=== PATIENT | male | born 1980 | race Caucasian/White ===

== ENCOUNTER → 2019-03-31 | Outpatient (CLI) | payer OTHER ==
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
== END ==
LOC: MRI 14:14
PROVIDERS: ATTEND Physician Assistant
DX: M23.91 Unspecified internal derangement of right knee (principal)

== ENCOUNTER → 2019-05-01 | Day surgery (SDC) | payer OTHER ==
[~2019-05-01] MED LIST: BUPIVACAINE HCL 0.5% 10ML MPF VIAL INJ ONE; FENTANYL CITRATE/PF 100MCG/2 ML INJ ONE; IOPAMIDOL 610MG/1ML 300 MG/ML VIAL IV ONE; LIDOCAINE HCL 1% 2 ML AMP ONE; MIDAZOLAM HCL 2 MG/2 ML VIAL ONE; PROPOFOL IV EMULSION 10 MG/ML 20 ML VIAL ONE; TRIAMCINOLONE ACET 40 MG/ML VIAL ONE
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
--- OUTSIDE RECORDS SUMMARY | 2019-05-01 05:18 | XMS REPORT | Clinical Summary ---
Author Author [facility] Address Unknown Phone Unavailable Care Team Providers Care Computer Engineering Professor Name Role Phone Elder Barrera MD PCP Allergies Comments Active Allergy Reactions Severity Noted Date No Known Drug Allergies 11/28/2015 Medications No known medications Active Problems Problem Noted Date History of repair of left hip joint 01/18/2018 Left hip pain 01/18/2018 Chronic bilateral low back pain without sciatica 01/18/2018 Anemia due to blood loss 11/28/2015 Immunizations Name Administration Dates Next Due Tdap 09/24/2017 Social History Date Tobacco Use Types Packs/Day Years Used Never Smoker Smokeless Tobacco: Never Used Drinks/Week oz/Week Comments Alcohol Use Defer Sex Assigned at Date Recorded Not on file Industry Job Start Date Occupation Not on file Not on file Not on file Travel End Travel History Travel Start No recent travel history available. Last Filed Vital Signs Not on file Plan of Treatment Health Maintenance Due Date Last Done Comments INFLUENZA VACCINE 03/09/2019 Results Not on fileafter 04/30/2018 Insurance Type Payer Benefit Subscriber ID Effective Phone Address Plan / Dates Group PPO BCBS BCBS xxxxxxxxxxxx [id number] CHOICE resent PPO/IZZY L [id number] PPO Advance Directives For more information, please contact: [phone] Patient Wood Machinist Explanation Type Date Recorded Advance Directives, 09/23/2015 8:48 PM Living Will and Medical Power of Director Of [employer]
[2019-05-01 07:30] VITALS: BP 119/81
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
== END | disposition home or self-care (01) ==
LOC: OR 05:15
PROVIDERS: ATTEND Specialist
DX: M16.52 Unilateral post-traumatic osteoarthritis, left hip (principal); Z68.32 Body mass index [BMI] 32.0-32.9, adult
CPT/HCPCS: 20610; 77002; J2250; J2704; J3010; J3301; Q9967; J2001